=== PATIENT | female | born 1955 | race Caucasian/White ===

== ENCOUNTER 2019-02-22 12:41 | Day surgery (SDC) | payer OTHER ==
[2019-02-22] MEDS ORDERED: MIDAZOLAM 2 MG/2 ML VIAL IVP ONE (12:42)
[2019-02-22] MEDS ORDERED: fentaNYL 100 MCG/2 ML VIAL IVP ONE (12:42)
[2019-02-22] MEDS ORDERED: LACTATED RINGERS 1,000 ML IV ONE ×2 (13:02→14:55)
[2019-02-22 15:18] VITALS: BP 117/73
== END 2019-02-22 12:42 | disposition home or self-care (01) ==
LOC: SDS 12:41
PROVIDERS: ATTEND Surgery
PROC: 0DJD8ZZ Inspection of Lower Intestinal Tract, Via Natural or Artificial Opening Endoscopic (ICD-10-PCS; principal; 2019-02-22 14:15)
DX: Z12.11 Encounter for screening for malignant neoplasm of colon (principal); K57.30 Diverticulosis of large intestine without perforation or abscess without bleeding; K64.8 Other hemorrhoids
CPT/HCPCS: 45378; J7120

== ENCOUNTER 2020-06-07 08:00 | Outpatient (CLI) | payer OTHER | END 2020-06-07 23:59 | disposition home or self-care (01) | LOC: LAB.R 08:00 | PROVIDERS: ATTEND Registered Nurse | DX: L01.00 Impetigo, unspecified (principal) | CPT/HCPCS: 87070; 87205 ==

== ENCOUNTER 2022-02-09 14:57 | Outpatient (CLI) | payer MEDICARE ==
--- NOTE | 2022-02-10 08:37 | XRAY Report ---
PROCEDURE: Chest 2 View X-Ray INDICATIONS: COUGH TECHNIQUE: 2 views of the chest were acquired. COMPARISON: None FINDINGS: Surgical changes and devices: None. Lungs and pleura: No pleural effusions or pneumothorax. Lungs demonstrate strandy opacity laterally in both costophrenic sulci and mildly at the posterior lung bases. Lungs are otherwise clear. Mediastinum: Mediastinal contours are normal. Heart size is normal. Bones and chest wall: No suspicious bony abnormalities. Soft tissues appear unremarkable. IMPRESSION: 1. Bibasilar strandy opacities, probably atelectasis but underlying infection or aspiration is not ex cluded. Reviewed by: Lois Kc MD on 02/10/2022 8:35 AM PST Approved by: Lois Kc MD on 02/10/2022 8:35 AM PST Station ID: [id number]
== END 2022-02-09 14:58 | disposition home or self-care (01) ==
LOC: DI.N 14:57
PROVIDERS: ATTEND Nurse Practitioner Family
DX: R05.9 Cough, unspecified (principal); R91.8 Other nonspecific abnormal finding of lung field